=== PATIENT | female | born 1965 | race Caucasian/White ===

== ENCOUNTER 2017-01-11 02:59 | Inpatient (IN) | payer BC ==
--- NOTE | ~2017-01-11 | EKG ---
PATIENT: ABDI TOWNSEND UNIT #: [id number] Ventricular Rate: 81 BPM Atrial Rate: 81 BPM P-R Interval: 124 ms QRS Duration: 94 ms Q-T Interval: 438 ms QTC Calculation(Bezet): 508 ms P [place]: 56 degrees Calculated R [place]: 54 degrees Calculated T [place]: 41 degrees Diagnosis Line: Normal sinus rhythm Diagnosis Line: Nonspecific ST abnormality Diagnosis Line: Prolonged QT Diagnosis Line: Abnormal ECG Diagnosis Line: Diagnosis Line: Confirmed by KATHIE DEL TORO MD ([id number]) on Diagnosis Line: 01/14/2017 9:35:15 PM INTERPRETING MD: ALVERTO HUFFMAN
--- NOTE | ~2017-01-11 | HP ---
Unit #: [id number] #: [id number] Patient: ABDI TOWNSEND [id number] [address] [place], [place] [address] [id number] I MR#: [id number] NAME: ABDI TOWNSEND ROOM: 306 Age: 51 Sex: F Admission Date: 01/11/2017 : 1965 Attending Physician: Luís Goodman M.D. HISTORY AND PHYSICAL DIAGNOSIS ON ADMISSION Acute colitis. HISTORY OF PRESENT ILLNESS This 51-year-old female presented to [facility] Emergency Room with abdominal pain. As per patient, she was in her usual state of health and lives in [place] in [place]. The patient stated that she drove from [place] to assist her son in moving to [place], as he has a new job here. The patient stated that she ate a burger in [place], but she stated that around 1 in the morning she started to develop nausea and abdominal pain, which was followed by an episode of vomiting and loose stools. The patient stated that her pain worsened, and she decided to come to the ER. In the ER patient had a CT scan of the abdomen and was diagnosed with acute colitis, and we were requested to admit patient in the hospital. Patient currently states that abdominal pain is somewhat better, but she is complaining of nausea. She denies any episode of vomiting currently. She also had one bowel movement with loose stools, but there was no blood in the stool. The patient states that she has history of ischemic colitis. She denies headache or visual problems. The patient also states that she was feeling warm early in the morning initially and was hot and sweaty. Later on she had cold chills. She denies any chest pain, shortness of air, headache, visual problems, sore throat or blood in urine. She also denies any acute urinary frequency, urgency or burning. The rest of the review of systems was negative. PAST MEDICAL HISTORY 1. Patient states that she was diagnosed with ischemic colitis 4 years ago. The patient states that she had multiple colonoscopies and EGDs in [place]. 2. History of arthritis. 3. Hypertension. 4. Fibromyalgia. 5. Hypertension. 6. Depression. 7. Degenerative joint disease. 8. Neuropathy. PAST SURGICAL HISTORY 1. Hysterectomy. 2. Bladder surgery. ALLERGIES Unit #: [id number] #: [id number] Patient: ABDI TOWNSEND Penicillin, Erythromycin and Demerol. HOME MEDICATIONS 1. The patient is on Neurontin 300 mg p.o. in the morning and 600 mg in q.p.m. 2. Tramadol 50 mg t.i.d. 3. Zantac 150 mg daily. 4. Lisinopril 5 mg daily. 5. Prilosec 20 mg daily. 6. Lexapro 10 mg daily. 7. Enteric-coated aspirin 81 mg p.o. daily. 8. Zanaflex 4 mg p.o. b.i.d. 9. Myrbetriq 50 mg daily. 10. Calcium with vitamin D daily. 11. Armodafinil. 12. Meloxicam. 13. Estradiol. 14. Trazodone 50 mg daily. 15. Diclofenac 75 mg b.i.d. 16. VESIcare 10 mg daily. SOCIAL HISTORY The patient stated that she smokes 1 to 1 1/2 packs of cigarettes per day for the past many years. She drinks socially. FAMILY HISTORY Family history is positive for cancer and diabetes. PHYSICAL EXAMINATION GENERAL: The patient is lying comfortably in bed, is not in any acute distress. VITAL SIGNS: Her vital signs reveal a temperature of 99.5, pulse is 98 per minute, respiratory rate is 18 per minute, blood pressure is 121/70. HEENT: Examination revealed no conjunctival congestion. Sclera is nonicteric. NECK: Neck is supple. Trachea is central. RESPIRATORY: Examination revealed breath sounds equal bilaterally. There are no wheezes or crackles. HEART: Regular rate and rhythm. S1, S2. ABDOMEN: Abdomen is soft. There is mid abdominal tenderness present. There is no rebound tenderness, rigidity. Bowel sounds are present in all 4 quadrants. EXTREMITIES: Extremities reveal trace pedal edema. SKIN: Skin is warm and dry. NEUROLOGIC: Strength is 5/5 bilaterally. Sensations are grossly intact. DIAGNOSTIC STUDIES LABS ON ADMISSION: The patient's creatinine is 1.1, sodium 139, potassium was 2.8. AST and ALT are within normal limits. Lactic acid is 4.5. Amylase was 335. WBC is 20.1, hemoglobin 16, platelet count 365. Urinalysis revealed trace esterase. IMAGING: CT scan of the abdomen and pelvis revealed diffuse thickening of colon from the transverse colon to the rectum. This is consistent with diffuse colitis. Chest x-ray did not reveal any acute findings. Unit #: [id number] #: [id number] Patient: ABDI TOWNSEND This 51-year-old female from [place] was admitted to the hospital with abdominal pain. PLAN 1. Acute colitis. Patient will be on Flagyl and Levaquin. We will request GI to see patient in consultation. 2. Hypokalemia. We will repeat patient's potassium now and will start the patient on potassium protocol. 3. History of depression. Will continue patient's home medication,. 4. Gastroesophageal reflux disease. Will continue Prilosec. 5. We will discontinue patient's diclofenac and meloxicam. 6. Hypertension. Will continue on lisinopril. 7. The plan was discussed in detail with the patient, who showed complete understanding. Dictated by Christy Estevez TD: 01/11/2017 14:48 JOB #: [id number] HISTORY AND PHYSICAL Page 1 of 1 X Luís Goodman MD X HISTORY AND PHYSICAL
--- NOTE | ~2017-01-11 | CR72 ---
[facility] [place]. [facility] A Service of [facility] & [facility] RADIOLOGY TEXT RESULTS PATIENT: ABDI TOWNSEND LOCATION: [facility] 306-01 : [birth year] UNIT #: [id number] AGE: [address]: Luís Goodman MD SEX: F ORDER DR: [id number] [address] [address] [id number] E MR#: [id number] Acc #: [id number] NAME: ABDI TOWNSEND : 1965 SEX: F STUDY DATE/TIME: 01/11/2017 4:33 UNIT: SED ROOM: STUDY DESCRIPTION: CR Chest Single View Portable Attending Physician: Lucio Fofana Ordering Physician: Lucio Fofana MEDICAL IMAGING REPORT This report is preliminary unless electronic signature is present. EXAM Portable chest INDICATION Abdominal pain and vomiting. Diarrhea. Fever. FINDINGS Single portable AP view of the chest without comparison. Heart and mediastinal contours are normal. The lungs are clear. No pleural effusion. IMPRESSION No acute findings. Dictated by... Oleg Ravi M.D. THIS IS AN ELECTRONICALLY VERIFIED REPORT Oleg Ravi M.D. at 01/15/2017 7:03 AM ALFREDO/lona TD: 01/11/2017 06:05 JOB #: [id number] MEDICAL IMAGING REPORT Page 1 of 1
--- NOTE | ~2017-01-11 | DS ---
Unit #: [id number] #: [id number] Patient: ABDI TOWNSEND [id number] [address] [address] [id number] I MR#: [id number] NAME: ABDI TOWNSEND ROOM: 306 Age: 51 Sex: F Admission Date: 01/11/2017 : 1965 Discharge Date: 01/13/2017 Attending Physician: Luís Goodman M.D. DISCHARGE SUMMARY DIAGNOSIS ON ADMISSION 1. Acute colitis. 2. Hypokalemia. DIAGNOSES ON DISCHARGE 1. Acute colitis. 2. Hypokalemia. 3. Acute gram-negative urinary tract infection. 4. Hypertension. 5. Depression. 6. Gastroesophageal reflux disease. 7. History of ischemic colitis. CONSULTATIONS Dr. Alejandro López in GI consultation. DIAGNOSTIC STUDIES LABS: The patient's creatinine is 0.6, sodium 139, potassium is 4.2. AST and ALT are normal. The patient's amylase level was 335 on admission and lipase 43. WBC 7.4, hemoglobin 10.2, platelet count is 171. Urine culture has revealed acute gram-negative rods greater than 100,000. Blood culture did not reveal any growth so far. IMAGING: CT scan of the abdomen and pelvis revealed diffuse circumferential thickening of the colon from transverse colon to rectum. This is consistent with diffuse colitis. HOSPITAL COURSE This 51-year-old female presented to [facility] with abdominal pain. Details are as per admission H and P. Patient was treated with IV antibiotics for acute colitis and was seen by Dr. Alejandro López who has seen the patient and recommended that patient has resolving ischemic colitis, and she can go home. Acute urinary tract infection. Will treat patient with IV antibiotics. Today, the patient is comfortable, is not in any acute distress, wants to go home. RECOMMENDATION ON DISCHARGE 1. Condition is stable. 2. Activity is as tolerated. Unit #: [id number] #: [id number] Patient: ABDI TOWNSEND DISCHARGE MEDICATIONS 1. Neurontin 300 mg p.o. q.a.m. and 600 mg p.o. q.h.s. 2. Lexapro 10 mg p.o. daily. 3. Trazodone 50 mg p.o. q.h.s. 4. VESIcare 10 mg p.o. daily. 5. Lisinopril 5 mg p.o. daily. 6. Zantac 150 mg p.o. daily. 7. Enteric-coated aspirin 81 mg p.o. daily. 8. Tramadol 50 mg p.o. t.i.d. p.r.n., which is a home medication. 9. Prilosec 20 mg p.o. daily. 10. Calcium with vitamin D tablet p.o. daily. 11. Levaquin 500 mg p.o. daily for 1 week. 12. Flagyl 500 mg p.o. t.i.d. for 1 week. FOLLOW-UP 1. Patient is advised to follow up with primary care physician in 1 week and with GI in 1 week. Patient stated that she is from [place] and is going back there in a couple days and will follow up with her physicians there. 2. The patient is advised to call primary care physician or go to the ER if her condition changes. 3. Patient is advised to obtain records from [facility], including her antithrombin III, protein C, protein S levels, which are still spending, and she showed understanding that she will get those records. NOTE: The plan has been discussed with patient, and all of her questions have been answered to her apparent satisfaction. Dictated by... Christy Estevez TD: 01/13/2017 13:19 JOB #: [id number] CC: Alejandro López M.D. DISCHARGE SUMMARY Page 1 of 1 X Luís Goodman MD X DISCHARGE SUMMARY
--- NOTE | ~2017-01-11 | CO ---
Unit #: [id number] #: [id number] Patient: ABDI MENDENHALL [id number] [address] [address] [id number] I MR#: [id number] NAME: ABDI MENDENHALL ROOM: 306 Age: 51 Sex: F Admission Date: 01/11/2017 : 1965 Attending Physician: Luís Goodman M.D. Consultation Date: 01/11/2017 CONSULTATION REPORT REASON FOR CONSULTATION Ischemic colitis. HISTORY OF PRESENT ILLNESS Ms. Mendenhall is a 51-year-old white female. The patient was moving her son, who is 26-year-old for a new job in [place] from [place]. While driving early in the morning, she developed severe and intense pain in the lower abdomen followed by nausea, vomiting, diarrhea, and hematochezia. She says she has had similar episodes at least on two occasions in the past 3 years. Each time, she had a colonoscopy done in [place] and was told that she had ischemic colitis. The symptoms then resolved with conservative treatment. She says the current symptomatology is quite similar. Last colonoscopy was couple of years ago in [place]. PAST MEDICAL HISTORY Significant for history of fibromyalgia; gastroesophageal reflux; hypertension; and two episodes of ischemic colitis. She also has history of depression, degenerative joint disease, and neuropathy. PAST SURGICAL HISTORY Included hysterectomy and bladder surgery. MEDICATIONS The patient is currently on Neurontin as well as tramadol, Zantac, lisinopril, Prilosec, Lexapro, enteric-coated aspirin, Zanaflex, Myrbetriq, calcium, armodafinil, meloxicam, estradiol, trazodone, diclofenac, and VESIcare. I am not sure why she is taking meloxicam and diclofenac. ALLERGIES Include erythromycin, penicillin, and Demerol. SOCIAL HISTORY The patient smokes one pack of cigarette per day. Does drink socially. FAMILY HISTORY Significant for cancer and diabetes. REVIEW OF SYSTEMS Detailed review of organ systems does not reveal any recent weight loss. No history of fever, chills, or rigors. No history of headache, seizures, chest pain, or syncope. No history of cough, expectoration, or hemoptysis. No history of dysuria, hematuria, or pyuria. No history of focal seizures or extremity weakness. Rest of the review of organ system Unit #: [id number] #: [id number] Patient: ABDI MENDENHALL is unremarkable. PHYSICAL EXAMINATION GENERAL: She is alert and oriented, appears comfortable. VITAL SIGNS: Stable with a temperature of 99.6, pulse 80 per minute and regular, respiratory rate is 18, blood pressure 164/83. She appears well nourished. HEENT: There is no pallor, icterus, lymphadenopathy, or peripheral edema. CARDIOVASCULAR: Normal heart sounds. No murmurs on auscultation. LUNGS: Reveal normal breath sounds. Good air entry. ABDOMEN: Soft with localized tenderness in the left lower quadrant of the abdomen. Liver and spleen are not palpable. Bowel sounds normal. DIAGNOSTIC STUDIES LABORATORY RESULTS: Shows a white count of 20,000 with left shift, hemoglobin is 16, and platelet count is normal. Serum chemistry shows normal BUN and creatinine, and potassium of 2.8, which has since then normalized. LFTs are normal and albumin is 4.3. Blood sugar is 207. Urinalysis shows trace of leukocyte esterase positive and 5 to 10 wbc's. IMAGING STUDIES: The patient had a CT scan of the abdomen and pelvis that is consistent with colitis. CLINICAL IMPRESSION The patient most likely does have repeated ischemic colitis. The etiology is unclear. Also, we do not have any access to her old records. The patient is started on empiric metronidazole and Levaquin. Suggest continue current medications, and if she is feeling better, she can have further workup in [place] on return. We will also suggest doing protein C, protein S, antithrombin III just because this is third episode in 3 years. The patient will also be started on liquid diet, which can be advanced tomorrow if she is feeling better. Thank you for asking me to see this pleasant woman. I appreciate the consult. Dictated by... Christy Joya/fareed TD: 01/12/2017 13:56 JOB #: [id number] CC: Christy Estevez M.D. CONSULTATION REPORT Page 1 of 1 X Alejandro López MD CONSULTATION REPORT
--- NOTE | ~2017-01-11 | CT2 ---
[facility] A Service [facility] RADIOLOGY TEXT RESULTS PATIENT: ABDI TOWNSEND LOCATION: [facility] 306- : [birth year] UNIT #: [id number] AGE: [address]: Luís Goodman MD SEX: F ORDER DR: [id number] [address] [address] [id number] E MR#: [id number] Acc #: [id number] NAME: ABDI TOWNSEND : 1965 SEX: F STUDY DATE/TIME: 01/11/2017 3:51 UNIT: SED ROOM: STUDY DESCRIPTION: CT Abd and Pelv W Cont Attending Physician: Lucio Fofana Ordering Physician: Lucio Fofana MEDICAL IMAGING REPORT This report is preliminary unless electronic signature is present. EXAM CT abdomen and pelvis INDICATION Abdominal pain. Vomiting, diarrhea. TECHNIQUE CT of the abdomen and pelvis with IV contrast. Coronal and sagittal reconstructions were obtained. This CT examination was performed with one or more of the following radiation dose reduction techniques: automatic exposure control, adjustment of mA and/or kV according to patient size, and iterative reconstruction. COMPARISON None available. FINDINGS ABDOMEN: There is diffuse circumferential thickening of the colon. This involves the rectum through the transverse colon. There is fluid-filled right-sided colon, however no significant inflammation. This is most consistent with a diffuse colitis. There is no small bowel obstruction. The terminal ileum is within normal limits. There is a small volume of ascites, however no abscess or perforation. The solid abdominal organs are within normal limits. There is a large dystrophic calcification or calculus in the mid right kidney measuring 1.1 cm. There is an area of renal cortical scarring at this area. No pathologically enlarged retroperitoneal or mesenteric lymph nodes. The abdominal aorta is normal in caliber. There is a small umbilical hernia. [facility] A Service [facility] RADIOLOGY TEXT RESULTS PATIENT: ABDI TOWNSEND LOCATION: [facility] 306- : 61 UNIT #: [id number] AGE: [address]: Luís Goodman MD SEX: F ORDER DR: PELVIS: No pelvic mass. Bladder is decompressed with a Lopez catheter. Uterus is surgically absent. The ovaries are not clearly identified. No acute osseous abnormalities. IMPRESSION 1. Diffuse circumferential thickening of the colon from the transverse colon to the rectum. This is consistent with a diffuse colitis. 2. Small volume of ascites is likely reactive. 3. No abscess or perforation. Dictated by... Oleg Ravi M.D. THIS IS AN ELECTRONICALLY VERIFIED REPORT Oleg Ravi M.D. at 01/15/2017 7:03 AM ALFREDO/lona TD: 01/11/2017 05:56 JOB #: [id number] MEDICAL IMAGING REPORT Page 1 of 1
[2017-01-11] MEDS ORDERED: NEURONTIN300 MG PO (03:17)
[2017-01-11] MEDS ORDERED: PROBIOTIC (03:17)
[2017-01-11] MEDS ORDERED: ZANTAC150 M1 PO (03:18)
[2017-01-11] MEDS ORDERED: TRAMADOL HCL50 M2 PO (03:18)
[2017-01-11] MEDS ORDERED: OMEPRAZOLE20 M2 PO (03:19)
[2017-01-11] MEDS ORDERED: ZESTRIL10 M1 PO (03:19)
[2017-01-11] MEDS ORDERED: ESCITALOPRAM OX10 MG PO (03:19)
[2017-01-11] MEDS ORDERED: ASPIRIN81 M2 PO (03:20)
[2017-01-11] MEDS ORDERED: DEXILANT60 MG PO (03:20)
[2017-01-11] MEDS ORDERED: ZANAFLEX4 M1 PO (03:20)
[2017-01-11 03:21] LABS: BASOPHIL# 0.1 X10e3 (0-0.3); BASOPHIL% 0.3 % (0-2.5); EOSINOPHIL# 0.3 X10e3 (0-0.7); EOSINOPHIL% 1.6 % (0.0-7.0); HEMATOCRIT 48.5 % (35.0-45.0); LYMPHOCYTE# 3.3 X10e3 (1.0-3.5); LYMPHOCYTE% 16.2 % (17.0-45.0); MEAN CELL VOLUME 94.6 FL (83-96); MEAN CORPUSCULAR HEMOGLOBIN 31.3 PG (28-34); MEAN PLATELET VOLUME 8.6 FL (6.5-11.5); MONOCYTE# 0.5 X10e3 (0-1.0); MONOCYTE% 2.7 % (3.0-12.0); NEUTROPHIL# 15.9 X10e3 (1.5-7.1); NEUTROPHIL% 79.2 % (40-75); PLATELET COUNT 365 X10e3 (140-420); RED BLOOD COUNT 5.13 X10e (3.90-5.30); RED CELL DISTRIBUTION WIDTH 13.2 % (11.0-15.5); WHITE BLOOD COUNT 20.1 X10e3 (4.0-10.5)
[2017-01-11] MEDS ORDERED: ARMODAFINIL200 MG (03:21)
[2017-01-11] MEDS ORDERED: MYRBETRIQ50 MG PO (03:21)
[2017-01-11] MEDS ORDERED: CALCIUM 600 +1 EA16 (03:21)
[2017-01-11] MEDS ORDERED: MELOXICAM7.5 MG (03:22)
[2017-01-11] MEDS ORDERED: ESTRADIOL PO (03:22)
[2017-01-11] MEDS ORDERED: VOLTAREN75 MG PO (03:23)
[2017-01-11] MEDS ORDERED: DESYREL50 MG PO (03:23)
[2017-01-11] MEDS ORDERED: VESICARE PO (03:24)
[2017-01-11 03:27] LABS: DIFF IND YES
[2017-01-11 03:41] LABS: ALBUMIN SERUM 4.3 g/dL (3.5-5.0); ALKALINE PHOSPHATASE 133 U/L (32-92); ALT (SGPT) 13 U/L (10-40); AMYLASE 335 U/L (0-46); AST (SGOT) 28 U/L (10-42); BILIRUBIN,TOTAL 0.3 mg/dL (0.2-2.0); BLOOD UREA NITROGEN 17 mg/dL (9-23); BUN/CREATININE RATIO 15.45; CARBON DIOXIDE 22 mmol/L (22-31); CHLORIDE 104 mmol/L (100-111); CREATININE SERUM 1.1 mg/dL (0.6-1.4); GLOM FILT RATE Estimated 57.3 mL/min (>60); GLUCOSE FASTING 209 mg/dL (70-110); LIPASE 43 U/L (22-51); PROTEIN TOTAL SERUM 7.9 g/dL (6.0-8.3); SODIUM 139 mmol/L (135-145)
[2017-01-11 03:42] LABS: POTASSIUM 2.8 mmol/L (3.5-5.1)
[2017-01-11 03:43] LABS: BILIRUBIN, DIRECT <0.1 mg/dL (0.0-0.2); BILIRUBIN,INDIRECT 0.2 mg/dL (0.0-0.9)
[2017-01-11 03:45] LABS: PLATELET ESTIMATE NORMAL (NORMAL); RBC NORMAL YES
[2017-01-11 04:16] LABS: POC - CKMB 1.5 ng/mL (0.0-7.9); POC - TROPONIN <0.05 ng/mL (<=0.05)
[2017-01-11 04:31] LABS: URINE APPEARANCE CLEAR; URINE BILIRUBIN NEG (NEG); URINE BLOOD NEG (NEG); URINE COLOR YELLOW; URINE GLUCOSE NEG (NORM); URINE KETONE NEG (NEG); URINE LEUKOCYTE ESTERASE TRACE (NEG); URINE NITRATE NEG (NEG); URINE PROTEIN NEG (NEG); URINE UROBILINOGEN 0.2 MG/DL (NORM)
[2017-01-11 04:38] LABS: MICRO INDICATED? YES; URINE SOURCE CATH
[2017-01-11 04:39] LABS: CULTURE INDICATED? YES; URINE BACTERIA NEG (NEG); URINE RBC 0-2 /[HPF] (0-2)
[2017-01-11 04:40] LABS: URINE SQUAMOUS EPITHELIAL CELL OCCAS /[HPF]; URINE TRANSITIONAL EPI CELLS FEW /[HPF]
[2017-01-13 04:31] LABS: BASOPHIL% 0.5 % (0-2.5); EOSINOPHIL# 0.3 X10e3 (0-0.7); EOSINOPHIL% 3.8 % (0.0-7.0); HEMATOCRIT 30.9 % (35.0-45.0); HEMOGLOBIN 10.2 gm/dL (12.0-16.0); LYMPHOCYTE# 1.9 X10e3 (1.0-3.5); LYMPHOCYTE% 26.3 % (17.0-45.0); MEAN CORPUSCULAR HEMOGLOBIN 31.5 PG (28-34); MEAN CORPUSCULAR HGB CONC 32.9 g/dL (30-36); MEAN PLATELET VOLUME 8.7 FL (6.5-11.5); MONOCYTE# 0.7 X10e3 (0-1.0); MONOCYTE% 9.2 % (3.0-12.0); NEUTROPHIL# 4.5 X10e3 (1.5-7.1); NEUTROPHIL% 60.2 % (40-75); PLATELET COUNT 171 X10e3 (140-420); RED BLOOD COUNT 3.22 X10e (3.90-5.30); RED CELL DISTRIBUTION WIDTH 13.3 % (11.0-15.5); WHITE BLOOD COUNT 7.4 X10e3 (4.0-10.5)
[2017-01-13 04:32] LABS: DIFF IND NO
[2017-01-13 04:51] LABS: BUN/CREATININE RATIO 11.66; CALCIUM SERUM 7.9 mg/dL (8.4-10.2); CREATININE SERUM 0.6 mg/dL (0.6-1.4); GLOM FILT RATE Estimated 104.1 mL/min (>60); POTASSIUM 4.2 mmol/L (3.5-5.1)
[2017-01-13] MEDS ORDERED: LEVAQUIN PO (10:47)
[2017-01-13] MEDS ORDERED: FLAGYL PO (10:48)
[2017-01-15 22:18] LABS: PROTEIN C ACTIVITY 97 % (70-180); PROTEIN S 69 % (60-140)
== END 2017-01-13 12:24 | disposition home or self-care (01) | DRG 392 ==
LOC: SED 02:59 → CEDOF 05:18 → C3A PCU 05:18
PROVIDERS: Emergency Medicine; Internal Medicine; Internal Medicine Gastroenterology
DX: K52.9 Noninfective gastroenteritis and colitis, unspecified (principal); I10 Essential (primary) hypertension; N39.0 Urinary tract infection, site not specified; E87.6 Hypokalemia; B96.89 Other specified bacterial agents as the cause of diseases classified elsewhere; F32.9 Major depressive disorder, single episode, unspecified; K21.9 Gastro-esophageal reflux disease without esophagitis; M19.90 Unspecified osteoarthritis, unspecified site; M79.7 Fibromyalgia; F17.210 Nicotine dependence, cigarettes, uncomplicated; Z90.710 Acquired absence of both cervix and uterus; Z88.0 Allergy status to penicillin; Z88.1 Allergy status to other antibiotic agents; Z88.5 Allergy status to narcotic agent; Z83.3 Family history of diabetes mellitus; Z80.9 Family history of malignant neoplasm, unspecified
CPT/HCPCS: 36415; 51702; 71010; 74177; 80048; 80076; 81003; 82150; 82553; 83605; 83690; 84132; 84484; 85025; 85301; 85303; 85306; 87040; 87045; 87086; 87088; 87186; 87427; 87493; 87899; 93005; 96361; 96372; 96374; 96375; 99285; 99291; J0500; J1170; J1956; J2270; J2405; J3480; Q9967